=== PATIENT | female | born 1980 | race Caucasian/White ===

== ENCOUNTER 2018-03-22 11:53 | Emergency (ER) | payer OTHER ==
[2018-03-22] MEDS ORDERED: ONDANSETRON ODT 4 MG TAB PO STA (12:35)
--- NOTE | 2018-03-22 12:42 | ED ---
General Adult HPI - General Chief complaint: Fever Stated complaint: Hot/cold since gustavo Source: patient Mode of arrival: ambulatory Limitations: no limitations - History of Present Illness Initial comments: Dictation was produced using [employer] dictation software. please excuse any grammatical, word or spelling errors. Chief Complaint: 37-year-old female with no significant past medical history presents with intermittent fever, chills and productive cough since 4 days ago. History of Present Illness: She is 37-year-old female presents with the effort mentioned symptoms. Patient states it started after Gustavo. She states that she took Tylenol prior to arrival. Patient states she's been having a productive cough with green symptoms. She states that she gets intermittent episodes of fever. Patient denies any past medical history. Denies any urinary symptoms. Patient states she does have runny nose that positive for clear fluid. The ROS documented in this emergency department record has been reviewed and confirmed by me. Those systems with pertinent positive or negative responses have been documented in the HPI. All other systems are other negative and/or noncontributory. - Related Data Home Medications Medication Instructions Recorded Confirmed Phenylephrine/Dm/Acetaminop/GG 1 tab PO ONCE PRN 03/22/18 03/22/18 [Tylenol Cold-Flu Severe Caplet] Previous Rx's Medication Instructions Recorded Azithromycin [Zithromax Z-pack] 0 mg PO DIRECTED #6 tab 03/22/18 Allergies Allergy/AdvReac Type Severity Reaction Status Date / Time acetaminophen Allergy Unknown Verified 03/22/18 13:03 [From Darvocet-N 100] propoxyphene Allergy Unknown Verified 03/22/18 13:03 [From Darvocet-N 100] Review of Systems ROS Statement: Those systems with pertinent positive or pertinent negative responses have been documented in the HPI. ROS Other: All systems not noted in ROS Statement are negative. Past Medical History Past Medical History: No Reported History History of Any Multi-Drug Resistant Organisms: None Reported Past Surgical History: Breast Surgery, Section Past Psychological History: No Psychological Hx Reported Smoking Status: Current every day smoker Past Alcohol Use History: None Reported Past Drug Use History: Marijuana General Exam - General Exam Comments Initial Comments: PHYSICAL EXAM: General Impression: Alert and oriented x3, not in acute distress HEENT: Normocephalic atraumatic, extra-ocular movements intact, pupils equal and reactive to light bilaterally, mucous membranes moist. Cardiovascular: Heart regular rate and rhythm, S1&S2 audible, no murmurs, rubs or gallops Chest: Lungs clear to auscultation bilaterally, no rhonchi, no wheeze, no rales Abdomen: Bowel sounds present, abdomen soft, non-tender, non-distended, no organomegaly Musculoskeletal: Pulses present and equal in all extremities, no peripheral edema Motor: Power 5/5 bilaterally, no focal deficits noted Neurological: CN II-XII grossly intact, no focal motor or sensory deficits noted Skin: Intact with no visualized rashes Psych: Normal affect and mood Limitations: no limitations Course Vital Signs 03/22/18 03/22/18 11:55 13:24 Temperature 97.4 F L Pulse Rate 98 72 Respiratory 20 18 Rate Blood Pressure 105/69 110/80 O2 Sat by Pulse 98 100 Oximetry Medical Decision Making - Medical Decision Making ED course: 37-year-old female chief complaint of productive cough, constitutional symptoms. Vital signs upon arrival are within acceptable limits.Influenza test negative. Chest x-ray shows no acute findings. Patient observed in emergency Department with no change in symptoms. Patient appears well. Given history patient given 5 day Dosepak of azithromycin. She is told to hold onto the antibiotics and see if her symptoms get worse. Patient told to start antibiotics if she feels as though symptoms are acutely worsening otherwise she is told to discard that prescription. - Lab Data Lab Results 03/22/18 Range/Units 13:15 Influenza Type A RNA Not Detected (Not Detectd) Influenza Type B (PCR) Not Detected (Not Detectd) Disposition Clinical Impression: URI (upper respiratory infection) Disposition: HOME SELF-CARE Condition: Good Instructions: Fever in Adults (ED) Prescriptions: Azithromycin [Zithromax Z-pack] 0 mg PO DIRECTED #6 tab Is patient prescribed a controlled substance at d/c from ED?: No Referrals: None,Stated [Primary Care Provider] - 1-2 days Time of Disposition: 14:06
--- NOTE | 2018-03-22 13:08 | XR ---
EXAMINATION TYPE: XR chest 2V DATE OF EXAM: 03/22/2018 COMPARISON: None INDICATION: Chest pain TECHNIQUE: Frontal and lateral views of the chest are obtained. FINDINGS: The heart size is normal. The pulmonary vasculature is normal. The lungs are clear. There is some hyperinflation which could be related to inspiratory effort. IMPRESSION: 1. No acute pulmonary process.
[2018-03-22 14:33] VITALS: BP 107/72; PULSE 70; RESP 20; TEMP 98.1
== END 2018-03-22 14:30 | disposition home or self-care (01) ==
LOC: EC 11:53
DX: J06.9 Acute upper respiratory infection, unspecified (principal); F17.200 Nicotine dependence, unspecified, uncomplicated; Z88.5 Allergy status to narcotic agent; Z88.6 Allergy status to analgesic agent
CPT/HCPCS: 71046; 87502; 99283

== ENCOUNTER → 2018-10-30 | Outpatient (CLI) | payer OTHER ==
--- NOTE | 2018-10-30 16:25 | XR ---
Right shoulder HISTORY: Right shoulder pain 3 views of the right shoulder Lucent region with dense circular peripheral margin present superimposed over the right scapula is se en on AP exam but projecting posterior within the soft tissue region on the transscapular Y-view, pos sible artifact. Distal acromion is downturned. Right lung apex as visualized is normal. No fracture o r dislocation. IMPRESSION: Correlate for impingement. Possible artifact as described.
== END | disposition home or self-care (01) ==
LOC: RADXRYALE 11:42
PROVIDERS: ATTEND Internal Medicine
DX: M25.511 Pain in right shoulder (principal)

== ENCOUNTER → 2018-11-12 | Outpatient (CLI) | payer OTHER ==
--- NOTE | 2018-11-12 11:06 | US ---
EXAMINATION TYPE: US abdomen complete DATE OF EXAM: 11/12/2018 COMPARISON: NONE CLINICAL HISTORY: R10.11 ruq abd pain. EXAM MEASUREMENTS: Liver Length: 12.3 cm Gallbladder Wall: 0.1 cm CBD: 0.1 cm Spleen: 8.3 cm Right Kidney: 9.4 x 3.3 x 4.6 cm Left Kidney: 9.0 x 3.6 x 4.3 cm Pancreas: wnl Liver: wnl Gallbladder: wnl Evidence for sonographic Lynne's sign: No CBD: wnl Spleen: wnl Right Kidney: No hydronephrosis or masses seen Left Kidney: No hydronephrosis or masses seen Upper IVC: wnl Abd Aorta: wnl IMPRESSION: 1. Normal abdomen ultrasound
== END | disposition home or self-care (01) ==
LOC: RADUSWWP 06:44
PROVIDERS: ATTEND Internal Medicine
DX: R10.11 Right upper quadrant pain (principal)
CPT/HCPCS: 76700

== ENCOUNTER → 2022-04-10 | Outpatient (CLI) | payer OTHER ==
--- NOTE | 2022-04-10 17:41 | US ---
EXAMINATION TYPE: US transvaginal DATE OF EXAM: 04/10/2022 COMPARISON: NONE CLINICAL HISTORY: 41-year-old female N94.6 DYSMENORRHEA, UNSP. Pt states abnormally light menses x 4 months, only lasting one day each TECHNIQUE: Transvaginal sonographic images of the pelvis were acquired. Date of LMP: 03/25/2022 FINDINGS: EXAM MEASUREMENTS: Uterus: 8.7 x 3.4 x 4.6 cm Endometrial Stripe: 1.0 cm Right Ovary: 2.9 x 2.2 x 3.3 cm Left Ovary: 3.3 x 1.9 x 2.8 cm 1. Uterus: Anteverted and otherwise wnl 2. Endometrium: wnl 3. Right Ovary: Small cyst= 2.0 x 1.7 x 2.1 cm 4. Left Ovary: wnl. Normal follicular change. 5. Bilateral Adnexa: wnl 6. Posterior cul-de-sac: wnl IMPRESSION: 1. Endometrial stripe measuring 1 cm. This should correspond to the secretory phase of the menstrual cycle. 2. A 2.1 cm dominant follicle or functional cyst of the right ovary. 3. Normal follicular change in the left ovary.
== END | disposition home or self-care (01) ==
LOC: RADUSWWP 09:59
PROVIDERS: ATTEND Internal Medicine
DX: N83.201 Unspecified ovarian cyst, right side (principal); N94.6 Dysmenorrhea, unspecified
CPT/HCPCS: 76830

== ENCOUNTER → 2022-09-05 | Outpatient (CLI) | payer OTHER ==
[2022-09-05 20:03] LABS: ALT 15 U/L (8-44); AST 16 U/L (13-35); Albumin 4.7 d/dL (3.8-4.9); Albumin/Globulin Ratio 2.24 Ratio (1.60-3.17); Alkaline Phosphatase 57 U/L (41-126); Blood Urea Nitrogen 10.2 mg/dL (9.0-27.0); Calcium 9.7 mg/dL (8.7-10.3); Carbon Dioxide 28.3 mmol/L (21.6-31.8); Chloride 101 mmol/L (96-109); Chol/HDL Ratio 3.68 Ratio; Globulin 2.1 d/dL (1.6-3.3); Glucose 99 mg/dL (70-110); LDL Cholesterol,Calculated 96.5 mg/dL (0.0-131.0); Potassium 3.6 mmol/L (3.5-5.5); Sodium 141 mmol/L (135-145); Total Bilirubin 0.7 mg/dL (0.3-1.2); Total Protein 6.8 d/dL (6.2-8.2); VLDL Calculation 14.92 mg/dL (5.00-40.00)
[2022-09-05 21:30] LABS: Follicle Stimulating Hormone 18.2 mIU/mL; Luteinizing Hormone 20.2 mIU/mL
[2022-09-06 00:29] LABS: Basophils # (A) 0.05 X 10*3/uL (0.00-0.10); Basophils % (A) 0.7 %; Eosinophils # (A) 0.02 X 10*3/uL (0.04-0.35); Eosinophils % (A) 0.3 %; HCT 45.8 % (37.2-46.3); HGB 15.1 d/dL (12.0-15.0); Lymphocytes # (A) 1.26 X 10*3/uL (0.90-5.00); Lymphocytes % (A) 18.9 %; Mean Platelet Volume 11.7 FL (9.5-12.2); Monocytes # (A) 0.53 X 10*3/uL (0.20-1.00); Monocytes % (A) 7.9 %; NRBC Per 100 WBC 0 X 10*3/uL (0.00-0.01); Neutrophils # (A) 4.79 X 10*3/uL (1.80-7.70); Neutrophils % (A) 71.9 %; Platelet Count 191 X 10*3/uL (140-440); RBC 4.87 X 10*6/uL (4.10-5.20); RDW 12.6 % (11.5-14.5); WBC 6.67 X 10*3/uL (4.50-10.00)
== END | disposition home or self-care (01) ==
LOC: LABWHC1 11:58
PROVIDERS: ATTEND Internal Medicine
DX: Z00.01 Encounter for general adult medical examination with abnormal findings (principal); Z13.220 Encounter for screening for lipoid disorders; N95.1 Menopausal and female climacteric states; E55.9 Vitamin D deficiency, unspecified; R53.83 Other fatigue
CPT/HCPCS: 36415; 80053; 80061; 82306; 82670; 83001; 83002; 84443; 85025